=== PATIENT | female | born 1970 | race African-American/Black ===

== ENCOUNTER → 2020-12-29 | Outpatient (CLI) | payer BC ==
--- NOTE | 2020-12-29 14:51 | KCIC ---
EXAMINATION: MRI RIGHT LOWER EXTREMITY JOINT WITHOUT INDICATIONS: Right knee pain after trauma July 2020 residual swelling. TECHNIQUE: Multiplanar multisequence MRI of the right knee was obtained without contrast. COMPARISON: None. FINDINGS: MENISCI: There is minimal irregularity along the inferior surface of the posterior horn medial menis cus which could reflect a tiny horizontal tear or fraying. The lateral meniscus is intact. LIGAMENTS: The anterior and posterior cruciate ligaments are intact. The medial collateral ligament and lateral collateral ligament complex are intact. EXTENSOR MECHANISM: The quadriceps and patellar tendons are intact. Fat pads are normal. Retinacula are intact. BONES AND CARTILAGE: Mild superficial partial-thickness cartilage loss along the medial femoral cond yle. Focal superficial partial-thickness cartilage loss at the medial ridge. Focal partial thickness cartilage loss at the inner lateral tibial plateau. Cartilage is otherwise maintained. There is no ac kyle fracture. Marrow signal is normal. OTHER: No joint effusion. Tiny leaking Craig cyst. Muscles are normal. Remaining tendons are intact. IMPRESSION: 1. Minimal irregularity along the inferior surface of the posterior horn medial meniscus could be a t iny horizontal tear or fraying. 2. Mild cartilage loss, greatest in the medial compartment. 3. Tiny leaking Craig cyst. Electronically signed by: Hayley Isaacs MD (12/29/2020 2:49 PM) [id number]
== END ==
LOC: KCIC MRI 10:08
PROVIDERS: ATTEND Orthopaedic Surgery
DX: M71.21 Synovial cyst of popliteal space [Baker], right knee (principal)
CPT/HCPCS: 73721